=== PATIENT | male | born 1995 | race African-American/Black ===

== ENCOUNTER 2021-01-04 10:35 | Emergency (ER) | payer OTHER ==
[~2021-01-04] VITALS: Ht 170.2 cm; Wt 90.7 kg
--- NOTE | 2021-01-04 10:46 | Emergency Room Report ---
History of Present Illness General Chief Complaint: Behavioral Complaint Source: Patient, EMS Present Illness HPI Disclaimer: Please note that this report is being documented using [employer] technology. This can lead to erroneous entry secondary to incorrect interpretation by the dictating instrument. HPI: 25-year-old male history of schizophrenia currently on Risperdal presents for auditory hallucinations. He states that began this morning. He appears voices talking to themselves known to him. They are not telling him to do anything. He denies SI/HI. Denies drinking alcohol or using any recreational drugs. States he took his Risperdal this morning. He presents from a boarding care facility. Denies chest pain, shortness of breath, nausea, vomiting, diarrhea, fever, chills or other issues at this time. Patient is not on a hold and is here voluntarily. PMH: Reported schizophrenia PSH: Denied Allergies: Denied Social Hx: Denied Allergies: Coded Allergies: No Known Allergies (Unverified , 01/04/21) COVID-19 Screening Contact w/high risk pt: No Experienced COVID-19 symptoms?: No COVID-19 Testing performed ELECTROLYSIS OPERATOR: No Review of Systems All Other Systems: negative except mentioned in HPI Physical Exam Vital Signs Date Time Temp Pulse Resp B/P (MAP) Pulse Ox O2 Delivery O2 Flow Rate FiO2 01/04/21 10:27 97.5 118 18 103/67 (79) 99 Room Air General: Awake and alert, no acute distress HEENT: NC/AT. EOMI. Cardiovascular: Mildly tachycardic. S1 and S2 normal. No murmur appreciated Resp: Normal work of breathing. No cough, wheezing or crackles appreciated Abdomen: Abdomen is soft, nondistended. Nontender Skin: Intact. No abrasions, laceration or rash over the exposed skin MSK: Normal tone and bulk. Moving all extremities. No obvious deformity. Neuro: Awake and alert. Mentating appropriately. Speech is somewhat slow but the patient able to make his needs known. Denies SI/HI. Does not appear to be responding to internal stimuli at this time Medical Decision Making Diagnostic Impression: Primary Impression: Behavioral change ER Course 25-year-old male history of schizophrenia presents for auditory hallucinations. Denies SI/HI. Patient is here voluntarily; not on a hold. No other complaints. Declining medications at this time. Wants to speak with psychiatrist or be transferred to a psych facility. Will obtain labs for medical clearance Labs have returned within normal limits. Tox screen negative. Awaiting Covid antigen. He is now amenable to taking Risperdal. Informed by nursing staff that patient wants to leave now. Told nursing staff he was not suicidal he is no longer hearing voices. I went to go speak with the patient regarding discharge versus voluntary psychiatric placement however he was not found in his room. Not found in waiting room. Laboratory Tests Test 01/04/21 10:50 01/04/21 11:40 White Blood Count 7.3 K/UL (4.8-10.8) Red Blood Count 5.72 M/UL (4.70-6.10) Hemoglobin 16.0 G/DL (14.2-18.0) Hematocrit 47.4 % (42.0-52.0) Mean Corpuscular Volume 83 FL (80-99) Mean Corpuscular Hemoglobin 28.0 PG (27.0-31.0) Mean Corpuscular Hemoglobin Concent 33.8 G/DL (32.0-36.0) Red Cell Distribution Width 12.1 % (11.6-14.8) Platelet Count 212 K/UL (150-450) Mean Platelet Volume 7.7 FL (6.5-10.1) Neutrophils (%) (Auto) 71.8 % (45.0-75.0) Lymphocytes (%) (Auto) 22.0 % (20.0-45.0) Monocytes (%) (Auto) 5.1 % (1.0-10.0) Eosinophils (%) (Auto) 0.3 % (0.0-3.0) Basophils (%) (Auto) 0.8 % (0.0-2.0) Sodium Level 142 MMOL/L (136-145) Potassium Level 3.7 MMOL/L (3.5-5.1) Chloride Level 105 MMOL/L (98-107) Carbon Dioxide Level 26 MMOL/L (21-32) Anion Gap 11 mmol/L (5-15) Blood Urea Nitrogen 8 mg/dL (7-18) Creatinine 0.9 MG/DL (0.55-1.30) Estimated Glomerular Filtration Rate > 60 mL/min (>60) Glucose Level 111 MG/DL (74-106) H Calcium Level 9.4 MG/DL (8.5-10.1) Total Bilirubin 0.3 MG/DL (0.2-1.0) Aspartate Amino Transferase (AST) 20 U/L (15-37) Alanine Aminotransferase (ALT) 46 U/L (12-78) Alkaline Phosphatase 127 U/L (46-116) H Total Protein 8.3 G/DL (6.4-8.2) H Albumin 4.3 G/DL (3.4-5.0) Globulin 4.0 g/dL Albumin/Globulin Ratio 1.1 (1.0-2.7) Salicylates Level 2.3 ug/mL (2.8-20) L Acetaminophen Level < 2 MCG/ML (10-30) L Serum Alcohol < 3 mg/dL Urine Opiates Screen Negative (NEGATIVE) Urine Barbiturates Screen Negative (NEGATIVE) Phencyclidine (PCP) Screen Negative (NEGATIVE) Urine Amphetamines Screen Negative (NEGATIVE) Urine Benzodiazepines Screen Negative (NEGATIVE) Urine Cocaine Screen Negative (NEGATIVE) Urine Marijuana (THC) Screen Negative (NEGATIVE) Last Vital Signs Date Time Temp Pulse Resp B/P (MAP) Pulse Ox O2 Delivery O2 Flow Rate FiO2 01/04/21 10:27 97.5 118 18 103/67 (79) 99 Room Air Disposition: ELOPED Condition: Stable Donnell Hayward MD Jan 04, 2021 10:46
[2021-01-04 10:48] VITALS: BP 103/67
[2021-01-04 11:09] LABS: BASOPHILS % (AUTO) 0.8 % (0.0-2.0); EOSINOPHILS % (AUTO) 0.3 % (0.0-3.0); HEMATOCRIT 47.4 % (42.0-52.0); MEAN CORPUSCULAR VOLUME 83 FL (80-99); MONOCYTES % (AUTO) 5.1 % (1.0-10.0); NEUTROPHILS % (AUTO) 71.8 % (45.0-75.0); PLATELET COUNT 212 K/UL (150-450); RED BLOOD COUNT 5.72 M/UL (4.70-6.10); RED CELL DISTRIBUTION WIDTH 12.1 % (11.6-14.8); WHITE BLOOD COUNT 7.3 K/UL (4.8-10.8)
[2021-01-04 11:19] LABS: ANION GAP 11 mmol/L (5-15); BLOOD UREA NITROGEN 8 mg/dL (7-18); CALCIUM 9.4 MG/DL (8.5-10.1); CARBON DIOXIDE 26 MMOL/L (21-32); CHLORIDE 105 MMOL/L (98-107); CREATININE 0.9 MG/DL (0.55-1.30); POTASSIUM 3.7 MMOL/L (3.5-5.1); SODIUM 142 MMOL/L (136-145)
[2021-01-04 11:23] LABS: ALANINE AMINOTRANSFERASE 46 U/L (12-78); ALBUMIN 4.3 G/DL (3.4-5.0); ALBUMIN/GLOBULIN RATIO 1.1 (1.0-2.7); ALKALINE PHOSPHATASE 127 U/L (46-116); ASPARTATE AMINO TRANSFERASE 20 U/L (15-37); BILIRUBIN,TOTAL 0.3 MG/DL (0.2-1.0)
--- NOTE | 2021-01-04 11:30 | NUR ---
came to er by ambulance with complaints of hallucination denies any suicidal ideation per patient he wants some medication to calm him
[2021-01-04] MEDS ORDERED: Haloperidol 5mg/ml Inj IM ONE (12:00)
--- NOTE | 2021-01-04 12:04 | NUR ---
pt requested respirdol to make him feel better. he states he feels like he's going to . reassurance given to pt. pt approaching this RN and staring ask pt if he needs something and he enzo pause several seconds before he responds with an answer. gave pt a sandwich and something to drink. have to ask several times to go into his room.This RN feels uneasy when pt approaches.
--- NOTE | 2021-01-04 12:15 | NUR ---
per patient he is not suicidal dont want to be here de [facility] has been notified
--- NOTE | 2021-01-04 12:30 | NUR ---
pt's bx changed, he looked at this RN and said hi, how are you. his bx appears more calm. went by pt's room, pt was not there nor his belongings. prior to this time pt was in the room. searched for pt and informed md.
--- NOTE | 2021-01-04 12:48 | NUR ---
ELOPEMENT: pt left with all his belongings without notifying anyone. he stated that he was not SI or HI.
--- NOTE | 2021-01-04 12:50 | NUR ---
called [facility] unable to reach any one left message to call back
--- NOTE | 2021-01-04 13:30 | NUR ---
called again to the boarding care unable to reach any one
== END 2021-01-04 12:30 | disposition left against medical advice (07) ==
LOC: EDBD 10:35 → EMR 10:45
DX: F91.9 Conduct disorder, unspecified (principal); F20.9 Schizophrenia, unspecified; Z53.29 Procedure and treatment not carried out because of patient's decision for other reasons
CPT/HCPCS: 36415; 80053; 80307; 85025; 96372; 99284; G0480